=== PATIENT | male | born 1980 | race Caucasian/White ===

== ENCOUNTER 2020-08-02 17:33 | Emergency (ER) | payer BC ==
[~2020-08-02] VITALS: Ht 175.3 cm; Wt 83.0 kg
[2020-08-02 20:05] VITALS: BP 138/89
== END 2020-08-02 20:05 | disposition home or self-care (01) | DRG 179 ==
LOC: ED 17:33
DX: U07.1 COVID-19 (principal)

== ENCOUNTER 2020-08-09 18:57 | Emergency (ER) | payer BC ==
[~2020-08-09] VITALS: Ht 175.3 cm; Wt 84.0 kg
[2020-08-09 20:07] LABS: HEMATOCRIT 41.3 % (39.0-50.0); HEMOGLOBIN 14.1 g/dl (14.0-18.0); IMMATURE GRANULOCYTES 0.3 % (0.0-5.0); MEAN CELL VOLUME 92.6 fL CALC (80.0-100.0); MEAN CORPUSCULAR HGB 31.6 pG CALC (26.0-32.0); MEAN CORPUSCULAR HGB CONC 34.1 g/dL CAL (32.0-36.0); NEUT# 5.49 thou/uL (1.82-7.42); RED BLOOD COUNT 4.46 mill/uL (4.70-6.10); RED CELL DISTRI WIDTH 11.1 % (11.5-15.5)
[2020-08-09 20:29] LABS: ANION GAP 14 (6-22 (CALC)); BUN 14 mg/dL (9-20); BUN/CREATININE RATIO 19 (12-20 (CALC)); CARBON DIOXIDE 26 mmol/l (22-30); CHLORIDE 99 mmol/l (95-108); CREATININE 0.7 mg/dL (0.7-1.3); GFR > 60 ML/MIN (>=60 (CALC)); GFR FOR AFR.AMER. > 60 ML/MIN (>=60 (CALC)); POTASSIUM 4.2 mmol/l (3.5-5.1); SODIUM 135 mmol/l (137-146)
[2020-08-09 20:47] VITALS: BP 121/79
== END 2020-08-09 20:47 | disposition home or self-care (01) | DRG 179 ==
LOC: ED 18:57
PROVIDERS: Family Medicine
DX: U07.1 COVID-19 (principal)